=== PATIENT | female | born 1990 | race Caucasian/White ===

== ENCOUNTER → 2020-09-16 | Outpatient (CLI) | payer OTHER ==
[2020-09-16 17:15] LABS: HEMOGLOBIN 12.5 gm/dl (12.3-15.3); RED BLOOD COUNT 4.96 M/UL (4.00-5.10); WHITE BLOOD COUNT 10.7 K/UL (4.5-11.0)
== END ==
LOC: LAB 16:18
PROVIDERS: Dermatology
DX: K76.9 Liver disease, unspecified (principal); R53.83 Other fatigue; E66.3 Overweight; Z79.899 Other long term (current) drug therapy
CPT/HCPCS: 80076; 85025; 85027

== ENCOUNTER → 2020-09-27 | Outpatient (CLI) | payer OTHER | LOC: LAB 16:48 | DX: E11.9 Type 2 diabetes mellitus without complications (principal); E55.9 Vitamin D deficiency, unspecified; R79.82 Elevated C-reactive protein (CRP) | CPT/HCPCS: 36415; 83036; 85652; 86140 ==

== ENCOUNTER → 2020-11-12 | Outpatient (CLI) | payer OTHER ==
[2020-11-12 17:02] LABS: HEMOGLOBIN 12.7 gm/dl (12.3-15.3); RED BLOOD COUNT 4.97 M/UL (4.00-5.10); WHITE BLOOD COUNT 10.9 K/UL (4.5-11.0)
[2020-11-12 17:50] LABS: BUN/CREATININE RATIO 10 (0-10)
[2020-11-14 09:08] LABS: THYROXINE (T4) 6.9 ug/dL (4.5-12.0)
[2020-11-14 14:09] LABS: VITAMIN D, 25-HYDROXY 17.2 ng/mL (30.0-100.0)
== END ==
LOC: LAB 16:15
PROVIDERS: Nurse Practitioner
DX: F32.9 Major depressive disorder, single episode, unspecified (principal); E55.9 Vitamin D deficiency, unspecified
CPT/HCPCS: 80053; 80061; 83036; 84436; 84443; 84480; 85025; 85652; 86140

== ENCOUNTER → 2021-03-02 | Outpatient (CLI) | payer OTHER | LOC: LAB 16:58 | DX: E78.5 Hyperlipidemia, unspecified (principal); E55.9 Vitamin D deficiency, unspecified; R70.0 Elevated erythrocyte sedimentation rate | CPT/HCPCS: 80061; 84450; 84460; 85652; 86140 ==

== ENCOUNTER → 2021-08-08 | Outpatient (CLI) | payer OTHER ==
[2021-08-08 13:07] LABS: HEMOGLOBIN 14.3 gm/dl (12.3-15.3); RED BLOOD COUNT 5.44 M/UL (4.00-5.10); WHITE BLOOD COUNT 10.2 K/UL (4.5-11.0)
[2021-08-08 13:20] LABS: BUN/CREATININE RATIO 21 (0-10)
[2021-08-09 05:10] LABS: THYROXINE (T4) 7.4 ug/dL (4.5-12.0)
== END ==
LOC: RAD 11:39
PROVIDERS: Nurse Practitioner
DX: M79.672 Pain in left foot (principal); E78.5 Hyperlipidemia, unspecified; E11.9 Type 2 diabetes mellitus without complications; E55.9 Vitamin D deficiency, unspecified; K21.9 Gastro-esophageal reflux disease without esophagitis; F32.9 Major depressive disorder, single episode, unspecified; R70.0 Elevated erythrocyte sedimentation rate; R79.82 Elevated C-reactive protein (CRP); E07.9 Disorder of thyroid, unspecified; K25.9 Gastric ulcer, unspecified as acute or chronic, without hemorrhage or perforation; M25.472 Effusion, left ankle
CPT/HCPCS: 36415; 73610; 73630; 80053; 80061; 81001; 83036; 84436; 84443; 84480; 85025

== ENCOUNTER → 2021-09-14 | Outpatient (CLI) | payer OTHER | LOC: RAD 12:27 | DX: M25.572 Pain in left ankle and joints of left foot (principal); S92.155D Nondisplaced avulsion fracture (chip fracture) of left talus, subsequent encounter for fracture with routine healing | CPT/HCPCS: 73610; 73630 ==

== ENCOUNTER → 2021-10-11 | Outpatient (CLI) | payer OTHER | LOC: KOH-I 15:36 | DX: M79.672 Pain in left foot (principal); M25.572 Pain in left ankle and joints of left foot | CPT/HCPCS: 73610; 73630 ==

== ENCOUNTER → 2021-10-17 | Outpatient (CLI) | payer OTHER | LOC: KOH-I 15:53 | DX: S92.252A Displaced fracture of navicular [scaphoid] of left foot, initial encounter for closed fracture (principal) | CPT/HCPCS: 73700 ==

== ENCOUNTER → 2021-10-24 | Outpatient (CLI) | payer OTHER ==
[2021-10-24 10:55] LABS: HEMOGLOBIN 13.5 gm/dl (12.3-15.3); RED BLOOD COUNT 5.16 M/UL (4.00-5.10); WHITE BLOOD COUNT 7.5 K/UL (4.5-11.0)
[2021-10-25 07:11] LABS: A/G RATIO 1.2 (1.2-2.2); ALKALINE PHOSPHATASE, S 161 IU/L (44-121); ALT (SGPT) 55 IU/L (0-32); AST (SGOT) 41 IU/L (0-40); BILIRUBIN, TOTAL 0.3 mg/dL (0.0-1.2); BUN 9 mg/dL (6-20); BUN/CREATININE RATIO 13 (9-23); CALCIUM, SERUM 9.6 mg/dL (8.7-10.2); CARBON DIOXIDE, TOTAL 20 mmol/L (20-29); CHLORIDE, SERUM 107 mmol/L (96-106); CREATININE, SERUM 0.67 mg/dL (0.57-1.00); EGFR IF AFRICN AM 134 (>59); EGFR IF NONAFRICN AM 116 (>59); ESTIM. AVG GLU (EAG) 151 mg/dL (.); GLOBULIN, TOTAL 3.5 g/dL (1.5-4.5); GLUCOSE, SERUM 88 mg/dL (65-99); HEMOGLOBIN A1C 6.9 % (4.8-5.6); POTASSIUM, SERUM 4.5 mmol/L (3.5-5.2); PROTEIN, TOTAL, SERUM 7.8 g/dL (6.0-8.5); SODIUM, SERUM 142 mmol/L (134-144)
[2021-10-25 08:15] LABS: C-REACTIVE PROTEIN, QUANT 5 mg/L (0-10); CHOLESTEROL, TOTAL 161 mg/dL (100-199); HDL CHOLESTEROL 42 mg/dL (>39); LDL CHOLESTEROL CALC 99 mg/dL (0-99); LDL/HDL RATIO 2.4 ratio (0.0-3.2); T. CHOL/HDL RATIO 3.8 ratio (0.0-4.4); TRIGLYCERIDES 111 mg/dL (0-149); VITAMIN D, 25-HYDROXY 27.6 ng/mL (30.0-100.0)
== END ==
LOC: LAB 10:34
PROVIDERS: Nurse Practitioner Family
DX: R70.0 Elevated erythrocyte sedimentation rate (principal); R79.82 Elevated C-reactive protein (CRP); E55.9 Vitamin D deficiency, unspecified; R53.83 Other fatigue; Z13.220 Encounter for screening for lipoid disorders; Z13.1 Encounter for screening for diabetes mellitus
CPT/HCPCS: 36415; 80053; 80061; 83036; 84443; 85025; 85652; 86140

== ENCOUNTER → 2021-11-01 | Outpatient (CLI) | payer OTHER | LOC: KOH-I 10:30 | DX: S92.252D Displaced fracture of navicular [scaphoid] of left foot, subsequent encounter for fracture with routine healing (principal); M19.072 Primary osteoarthritis, left ankle and foot | CPT/HCPCS: 73721 ==

== ENCOUNTER → 2021-12-22 | Outpatient (CLI) | payer OTHER ==
[~2021-12-22] MED LIST: ALEVE220 MG PO; CELEXA20 MG PO; DEPO-PROVE150 MG/11 IM; METOPROLOL SUCC25 MG PO; PROTONIX40 MG PO; SINGULAIR10 MG PO; TYLENOL325 MG PO; VITAMIN D 40400 UNIT PO; [UNRECOGNIZED DRUG - OTHER] TP
== END ==
LOC: KOH-I 11:02
DX: S92.252D Displaced fracture of navicular [scaphoid] of left foot, subsequent encounter for fracture with routine healing (principal); X58.XXXD Exposure to other specified factors, subsequent encounter
CPT/HCPCS: 73630

== ENCOUNTER → 2022-01-05 | Outpatient (CLI) | payer OTHER | LOC: KOH-I 15:26 | DX: S92.252D Displaced fracture of navicular [scaphoid] of left foot, subsequent encounter for fracture with routine healing (principal) | CPT/HCPCS: 73630 ==

== ENCOUNTER → 2022-01-19 | Outpatient (CLI) | payer OTHER | LOC: KOH-I 16:04 | DX: S92.252D Displaced fracture of navicular [scaphoid] of left foot, subsequent encounter for fracture with routine healing (principal) | CPT/HCPCS: 73630 ==

== ENCOUNTER → 2022-02-09 | Outpatient (CLI) | payer OTHER | LOC: KOH-I 11:00 | DX: S92.252A Displaced fracture of navicular [scaphoid] of left foot, initial encounter for closed fracture (principal) | CPT/HCPCS: 73630 ==